=== PATIENT | female | born 1965 | race Two or more races ===

== ENCOUNTER 2025-04-29 12:31 | Inpatient (IN) | payer MEDICAID, OTHER ==
[~2025-04-29] VITALS: Ht 134.6 cm; Wt 70.5 kg
--- NOTE | 2025-04-29 12:54 | ECG ---
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
--- NOTE | 2025-04-29 12:59 | ED.PDOC ---
HPI Comments This is a 60 year old female presenting to the ED with chief complaint of neck pain and high blood pressure. Patient reports that she has been experiencing 8/10 neck pain for the past 2 days, visiting urgent care today for further evaluation. Patient relays that at the urgent care, she was found to have very high blood pressure and was advised to come into the ED for further evaluation. Patient states she did have a sharp chest pain to her left chest occur suddenly 2 days ago, but it resolved quickly. Patient's BP noted to be 181/96 in triage. Patient denies any chest pain, SOB, back pain, dizziness, headache, N/V, or abdominal pain. 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 Hx Family History Family History (Other): Arthritis Social History Smoker: Non-Smoker Alcohol: Denies ETOH Use Drugs: Denies Drug Use Lives In: Home Constitutional: denies: chills, diaphoresis, fatigue, fever, malaise, sweats, weakness, others EENTM: denies: blurred vision, double vision, ear bleeding, ear discharge, ear drainage, ear pain, ear ringing, eye pain, eye redness, hearing loss, mouth pain, mouth swelling, nasal discharge, nose bleeding, nose congestion, nose pain, photophobia, tearing, throat pain, throat swelling, voice changes, others Respiratory: denies: cough, hemoptysis, orthopnea, SOB at rest, shortness of breath, SOB with excertion, stridor, wheezing, others Cardiovascular: denies: chest pain, dizzy spells, diaphoresis, Dyspnea on exertion, edema, irregular heart beat, left arm pain, lightheadedness, palpitations, PND, syncope, others Gastrointestinal: denies: abdomen distended, abdominal pain, blood streaked bowels, constipated, diarrhea, dysphagia, difficulty swallowing, hematemesis, melena, nausea, poor appetite, poor fluid intake, rectal bleeding, rectal pain, vomiting, others Genitourinary: denies: abnormal vagina bleeding, burning, dyspareunia, dysuria, flank pain, frequency, hematuria, incontinence, pain, , vagina discharge, urgency, others Neurological: denies: dizziness, fainting, headache, left sided numbness, left sided weakness, numbness, paresthesia, pre-existing deficit, right sided numbness, right sided weakness, seizure, speech problems, tingling, tremors, weakness, others Musculoskeletal: reports: neck pain; denies: back pain, gout, joint pain, joint swelling, muscle pain, muscle stiffness, others Integumetry: denies: bruises, change in color, change in hair/nails, dryness, laceration, lesions, lumps, rash, wounds, others Allergic/Immunocompromised: denies: Difficulty Healing, Frequent Infections, Hives, Itching, others Hematologic/Lymphatic: denies: anemia, blood clots, easy bleeding, easy br uising, swollen glands, others Endocrine: denies: excessive hunger, excessive sweating, excessive thirst, excessive urination, flushing, intolerance to cold, intolerance to heat, unexplained weight gain, unexplained weight loss, others Psychiatric: denies: anxiety, bipolar disorder, depression, hopeless, panic disorder, schizophrenia, sleepless, suicidal, others All Other Systems: Reviewed and Negative Physical Exam General Appearance: Moderate Distress HEENT: Normal ENT Inspection, Pharynx Normal, TMs Normal Neck: Full Range of Motion, Non-Tender, Normal, Normal Inspection Respiratory: Chest Non-Tender, Lungs Clear, No Accessory Muscle Use, No Respiratory Distress, Normal Breath Sounds Cardiovascular: No Edema, No JVD, No Murmur, No Gallop, Normal Peripheral Pulses, Regular Rate/Rhythm Breast Exam: Deferred Gastrointestinal: No Organomegaly, Non Tender, No Pulsatile Mass, Normal Bowel Sounds, Soft Genitalia: Deferred Pelvic: Deferred Rectal: Deferred Extremities: No calf tenderness, Normal capillary refill, Normal inspection, Normal range of motion, Non-tender, No pedal edema Musculoskeletal : Apperance: Normal 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 Was a procedure done?: No CP Differential Dx Differential Diagnosis: Angina, [place], Pulmonary Embolus Differential Diagnosis: CHF Differential Diagnosis: Pericarditis X-Ray, Labs, Meds, VS Vital Signs Date Time Temp Pulse Resp B/P (MAP) Pulse Ox O2 Delivery O2 Flow Rate FiO2 04/29/25 15:30 130/78 04/29/25 15:12 132/96 04/29/25 14:55 175/98 04/29/25 14:05 70 14 203/102 (135) 98 04/29/25 14:03 203/102 04/29/25 13:18 97.8 73 14 213/102 (139) 99 97.8 04/29/25 13:14 213/102 04/29/25 13:10 73 14 99 Room Air* 0 21 04/29/25 12:59 85 04/29/25 12:53 98.3 52 18 181/96 (124) 98 98.3 04/29/25 12:52 85 Lab Test 04/29/25 15:45 04/29/25 14:48 04/29/25 13:01 Range/Units Troponin I High Sensitivity Pending 4 4 </=34 ng/L White Blood Count 9.0 4.4-10.8 10^3/uL Red Blood Count 5.07 4.0-5.20 10^6/uL Hemoglobin 15.3 12.2-16.2 g/dL Hematocrit 45.9 36.0-46.0 % Mean Corpuscular Volume 90.5 80.0-100.0 fL Mean Corpuscular Hemoglobin 30.2 28.0-32.0 pg Mean Corpuscular Hemoglobin Concent 33.4 32.0-36.0 g/dL Red Cell Distribution Width 14.2 11.8-14.3 % Platelet Count 242 140-450 10^3/uL Mean Platelet Volume 9.5 6.9-10.8 fL Neutrophils (%) (Auto) 57.7 37.0-80.0 % Lymphocytes (%) (Auto) 29.5 10.0-50.0 % Monocytes (%) (Auto) 11.0 0.0-12.0 % Eosinophils (%) (Auto) 0.7 0.0-7.0 % Basophils (%) (Auto) 1.1 0.0-2.0 % Neutrophils # (Auto) 5.2 1.6-8.6 10 ^3/uL Lymphocytes # (Auto) 2.6 0.4-5.4 10 ^3/uL Monocytes # (Auto) 1.0 0-1.3 10 ^3/uL Eosinophils # (Auto) 0.1 0-0.8 10 ^3/uL Basophils # (Auto) 0.1 0-0.2 10 ^3/uL Nucleated Red Blood Cells 0.5 % Sodium Level 144 136-145 mmol/L Potassium Level 3.6 3.5-5.1 mmol/L Chloride Level 109 H 98-107 mmol/L Carbon Dioxide Level 26 20-31 mmol/L Anion Gap 9 5-15 Blood Urea Nitrogen 15 9-23 mg/dL Creatinine 0.70 0.550-1.02 mg/dL Glomerular Filtration Rate Calc 99 >90 mL/min BUN/Creatinine Ratio 21.4 H 10.0-20.0 Serum Glucose 91 74-106 mg/dL Calcium Level 10.2 8.7-10.4 mg/dL Current Medications Medications (Trade) Dose Ordered Sig/[place] Route Start Time Stop Time Status Last Admin Clonidine HCl (Catapres Tablet) 0.1 mg ONCE ONCE PO 04/29/25 13:00 04/29/25 13:01 DC 04/29/25 13:14 Acetaminophen/ Hydrocodone Bitart ([place] 5/325MG Tab) 1 tab ONCE ONCE PO 04/29/25 13:00 04/29/25 13:01 DC 04/29/25 13:16 Nicardipine/ Sodium Chloride 200 ml @ 50 mls/hr Q4H IV 04/29/25 14:45 04/29/25 14:55 The patient's CBC is within normal limits. The chemistry panel is within normal limits. The patient was given [place] here in the emergency department's for the neck pain. The patient was given clonidine 0.1 mg for the elevated blood pressure. The patient was then started on a nicardipine drip. At this time the patient's troponin levels were done and x2 is negative The patient is being admitted with a diagnosis of hypertensive crisis The patient will be continued on the nicardipine drip Images Reviewed?: Images reviewed and evaluated by me Time of 1ST Reevaluation: 16:02 Reevaluation 1ST: Unchanged Patient Education/Counseling: Diagnosis, Treatment, Prognosis Family Education/Counseling: No Family Present Additional Information Reviewed patient's previous visit(s): None The following tests were ordered, and results were reviewed by me: EKG Additional information was gathered from interviewing the following independent historian: NONE I reviewed and agreed with the following test results read by other provider: NONE I discussed treatments and results with medical personnel and: Patient Comprehensive systems review obtained and negative except for what is stated in the HPI. Departure 1 Departure Time of Disposition: 16:01 Impression: Primary Impression: Hypertensive crisis Additional Impression: Neck pain Disposition: 09 ADMITTED INPATIENT Admit to: Tele Condition: Fair Critical Care Note Critical Care Time?: Yes (45 min-critical care time only) Stability Stability form required: Yes Unstable for transfer: ICU, CCU, PCU, KEVIN (Intensive VS monitoring), ED Physician Assesment (Clinical assesment) Heart Score Heart Score: Heart Score Response (Comments) Value History Moderate Suspicious 1 EKG Normal 0 Age 45-64 1 Risk Factors 1 or 2 risk factors 1 Troponin Normal limit 0 Total 3 I personally scribed for MARYANN GARRISON MD ([email or web address]) on 04/29/25 at 12:59. Electronically submitted by Dakota Loyd ([email or web address]). MARYANN GARRISON MD Apr 29, 2025 12:59
[2025-04-29 13:10] VITALS: PULSE 73; RESP 14; O2SAT 99
[2025-04-29] MEDS: cloNIDine HCL 0.1 MG TAB PO ONE (13:14)
[2025-04-29 13:15] LABS: Basophils # (auto) 0.1 10 ^3/uL (0-0.2); Basophils % (auto) 1.1 % (0.0-2.0); Eosinophils # (auto) 0.1 10 ^3/uL (0-0.8); Eosinophils % (auto) 0.7 % (0.0-7.0); Hematocrit 45.9 % (36.0-46.0); Hemoglobin 15.3 g/dL (12.2-16.2); Lymphocytes # (auto) 2.6 10 ^3/uL (0.4-5.4); Lymphocytes % (auto) 29.5 % (10.0-50.0); Mean Corpuscular Hemoglobin 30.2 pg (28.0-32.0); Mean Corpuscular Hgb Conc. 33.4 g/dL (32.0-36.0); Mean Corpuscular Volume 90.5 fL (80.0-100.0); Neutrophils # (auto) 5.2 10 ^3/uL (1.6-8.6); Neutrophils % (auto) 57.7 % (37.0-80.0); Nucleated Red Blood Cells % 0.5 %; Platelet Count (auto) 242 10^3/uL (140-450); Red Blood Cells 5.07 10^6/uL (4.0-5.20); Red Cell Distribution Width 14.2 % (11.8-14.3)
[2025-04-29] MEDS: HYDROcodone-ACET 5/325MG TAB PO ONE (13:16)
[2025-04-29 13:25] LABS: Potassium 3.6 mmol/L (3.5-5.1); Sodium 144 mmol/L (136-145)
[2025-04-29 13:26] LABS: Anion Gap 9 (5-15); Calcium 10.2 mg/dL (8.7-10.4); Carbon Dioxide 26 mmol/L (20-31)
[2025-04-29 13:31] LABS: BUN/Creatinine Ratio 21.4 (10.0-20.0); Blood Urea Nitrogen 15 mg/dL (9-23); Chloride 109 mmol/L (98-107); Glucose 91 mg/dL (74-106)
[2025-04-29] MEDS: NICARDIPINE HCL IN SODIUM CHLO 200 ML IV SCH (14:55)
[2025-04-29 16:41] VITALS: PULSE 80; RESP 17; O2SAT 97
[2025-04-29 19:57] VITALS: PULSE 77; RESP 18; O2SAT 96
[2025-04-29] MEDS: hydrALAZINE HCL 20 MG/ML VL IV ONE (21:32)
[2025-04-29] MEDS: LISINOPRIL 5 MG TAB PO SCH (23:45)
--- NOTE | 2025-04-29 23:49 | DVHHPRES ---
History of Present Illness Resident Creating Document: VANDANA RAMÍREZ RESIDENT History of Present Illness This is a 60-year-old female with past medical history of hypertension, dyslipidemia, unspecified irregular heart rate and arthritis, who presented to the ED referred by her PCP from [facility] due to elevated blood pressure and irregular heart rate. Patient states that she was feeling a severe headache that was worse in the occipital region but denies any chest pain or shortness of breath at that time. Upon admission, the patient had a blood pressure of 213/102 mmHg. Initial CBC and BNP were grossly unremarkable and troponins came back negative. EKG showed sinus rhythm with ventricular trigeminy and nonspecific ST-depression in leads I and AVL. Patient initially received clonidine and afterwards was placed on nicardipine drip which was further discontinued. Patient will be admitted for hypertensive urgency for further assessment management and dose readjustment. Past medical history: Hypertension, dyslipidemia, unspecified irregular heart rate. Home medications: Patient states that takes ardoson for arthritis. Denies been in any htn medication or statin. Surgical history: Denies Social history: Denies alcohol drug and smoking and lives with her family Cardiovascular: HTN, hyperipidemia Musculoskeletal: Chronic low back pain, Osteoarthritis Past Surgical History: None Family History: None Smoke: No ALCOHOL: none Drugs: None Lives: with Family Domestic Violence: Neg Review of Systems Constitutional: No: Fever, Chills, Sweats, Weakness, Malaise, Other Eyes: No: Pain, Vision change, Conjunctivae inflammation, Eyelid inflammation, Other, Redness ENT: Other (Headache); No: Ear pain, Ear discharge, Nose pain, Nose discharge, Nose congestion, Mouth pain, Mouth swelling, Throat pain, Throat swelling Respiratory: No: Cough, Dry, Shortness of breath, SOB with excertion, Wheezing, Hemoptysis, Pleuritic Pain, Sputum, Wheezing, Other Cardiovascular: No: Chest Pain, Palpitations, Orthopnea, Paroxysmal Noc. Dyspnea, Edema, Lt Headedness, Other Gastrointestinal: No: Nausea, Vomiting, Abdominal Pain, Diarrhea, Constipation, Melena, Hematochezia, Other Genitourinary: No Dysuria, No Frequency, No Incontinence, No Hematuria, No Retention, No Other Musculoskeletal: No: other, neck pain, shoulder pain, arm pain, back pain, hand pain, leg pain, foot pain Skin: No: Rash, Lesions, Jaundice, Bruising, Other Neurological: No: Weakness, Numbness, Incoordination, Change in speech, Confusion, Seizures, Other Allergies: Coded Allergies: NO KNOWN ALLERGIES (Unverified , 04/29/25) Medications Current Medications Medications Dose Ordered Sig/[place] Route Start Time Stop Time Status Last Admin Dose Admin Nicardipine/ Sodium Chloride 200 ml @ 50 mls/hr Q4H IV 04/29/25 14:45 04/29/25 14:55 50 MLS/HR Acetaminophen 650 mg Q6HP PRN PO 04/29/25 23:45 Lisinopril 10 mg DAILY PO 04/29/25 23:45 UNV Exam Vital Signs Vital Signs Date Time Temp Pulse Resp B/P (MAP) Pulse Ox O2 Delivery O2 Flow Rate FiO2 04/29/25 21:32 167/84 04/29/25 19:57 77 18 96 Room Air* 0 21 04/29/25 19:57 98.1 98.1 General Appearance: Alert, Oriented X3, Cooperative, No acute distress HEENT: Atraumatic, PERRLA, EOMI, Mucous membr. moist/pink Respiratory: Clear to auscultation, Normal air movement Cardiovascular: Normal S1, Normal S2, No murmurs, Other (Irregular heart rate EKG showed sinus rhythm with ventricular trigeminy) Abdominal: Normal bowel sounds, Soft, No tenderness, No hepatospenomegaly Extremities: No clubbing, No cyanosis, No edema, Normal pulses, No tenderness/swelling Skin: No rashes, No breakdown, No significant lesion Neuro: Normal gait, Normal speech, Strength at 5/5 X4 ext, Normal tone, Sensation intact, Cranial nerves 3-12 NL, Reflexes 2+ Psych/Mental Status: Mental status NL, Mood NL Labs/Xrays Labs Test 04/29/25 15:45 04/29/25 13:01 Range/Units Troponin I High Sensitivity 3 L </=34 ng/L White Blood Count 9.0 4.4-10.8 10^3/uL Red Blood Count 5.07 4.0-5.20 10^6/uL Hemoglobin 15.3 12.2-16.2 g/dL Hematocrit 45.9 36.0-46.0 % Mean Corpuscular Volume 90.5 80.0-100.0 fL Mean Corpuscular Hemoglobin 30.2 28.0-32.0 pg Mean Corpuscular Hemoglobin Concent 33.4 32.0-36.0 g/dL Red Cell Distribution Width 14.2 11.8-14.3 % Platelet Count 242 140-450 10^3/uL Mean Platelet Volume 9.5 6.9-10.8 fL Neutrophils (%) (Auto) 57.7 37.0-80.0 % Lymphocytes (%) (Auto) 29.5 10.0-50.0 % Monocytes (%) (Auto) 11.0 0.0-12.0 % Eosinophils (%) (Auto) 0.7 0.0-7.0 % Basophils (%) (Auto) 1.1 0.0-2.0 % Neutrophils # (Auto) 5.2 1.6-8.6 10 ^3/uL Lymphocytes # (Auto) 2.6 0.4-5.4 10 ^3/uL Monocytes # (Auto) 1.0 0-1.3 10 ^3/uL Eosinophils # (Auto) 0.1 0-0.8 10 ^3/uL Basophils # (Auto) 0.1 0-0.2 10 ^3/uL Nucleated Red Blood Cells 0.5 % Sodium Level 144 136-145 mmol/L Potassium Level 3.6 3.5-5.1 mmol/L Chloride Level 109 H 98-107 mmol/L Carbon Dioxide Level 26 20-31 mmol/L Anion Gap 9 5-15 Blood Urea Nitrogen 15 9-23 mg/dL Creatinine 0.70 0.550-1.02 mg/dL Glomerular Filtration Rate Calc 99 >90 mL/min BUN/Creatinine Ratio 21.4 H 10.0-20.0 Serum Glucose 91 74-106 mg/dL Calcium Level 10.2 8.7-10.4 mg/dL Assessment/Plan Assessment/Plan Assessment/plan Hypertensive urgency Dyslipidemia Sinus rhythm with ventricular trigeminy Chronic back pain and arthritis Plan -initial blood pressure on admission was 213/102 mmHg -Patient was started on nicardipine drip, which was discontinued afterwards -start lisinopril 10 mg daily -Low Na diet -EKG showed sinus rhythm with ventricular trigeminy and nonspecific ST depression in leads I and AVL, troponins came back negative. -monitor blood pressure closely -ordered lipid panel, hemoglobin A1c, TSH and free T4 Goals of care discussion with the patient and at bedside for >35min, FULL CODE Plan discussed with Dr. Obrien Plan discussed with: Patient My Orders Orders - VANDANA RAMÍREZ Procedure Category Date Status Time Admit ADMIT 04/29/25 Transmitted 23:32 Code Status CODE 04/29/25 Transmitted 23:32 Vital Signs JORGE 04/29/25 In Process 23:32 Review Orders With JORGE 04/29/25 In Process Adm.Md 23:32 Regular Diet DIET 04/30/25 Transmitted Breakfast Acetaminophen Tablet PHA 04/29/25 In Process (Tylenol Tablet) 23:45 Notify Md Of Changes JORGE 04/29/25 In Process From Base 23:32 Advance Directive JORGE 04/29/25 In Process 23:32 Basic Metabolic Panel LAB 04/30/25 Verified 04:00 Urinalysis LAB 04/29/25 Logged 23:32 Complete Blood Count LAB 04/30/25 Verified 04:00 Lipid Panel LAB 04/29/25 Logged 23:32 Patient Condition ORDERS 04/29/25 Transmitted 23:32 Allergies JORGE 04/29/25 In Process 23:32 Drug Screen LAB 04/29/25 Logged 23:32 Hemoglobin A1c LAB 04/29/25 Logged 23:32 Lisinopril Tablet PHA 04/29/25 Logged (Zestril Tablet) 23:45 Chest Xray 1 View XY 04/29/25 Verified 23:36 Date of Service: Apr 29, 2025 Billing Provider: NOAH OBRIEN MD Common Visit Codes: 74066-GKGOTLE INP/OBS CARE (HIGH) Secondary Visit Codes: 76655-IJORSEMA CARE PLAN 30 MINUTES VANDANA RAMÍREZ RESIDENT Apr 29, 2025 23:49
--- NOTE | 2025-04-29 23:59 | DVH ---
CHEST RADIOGRAPH Indication: EVAL LUNG PARENCHYMA Technique: Single frontal view of the chest was obtained Comparison: None FINDINGS: Lines and Tubes: None Lungs: Clear Pleura: No effusion. No pneumothorax. Cardiomediastinal contours: Unremarkable Bones: Unremarkable IMPRESSION: Clear lungs.
[2025-04-30] VITALS (10 sets, daily range): BP systolic 91–175; BP diastolic 55–94; PULSE 53–104; RESP 16–18; TEMP 97.7–98.6; O2SAT 95–98
[2025-04-30 01:36] LABS: HDL Cholesterol 59 mg/dL (40-59)
[2025-04-30 01:52] LABS: Cholesterol 291 mg/dL (< 200); Triglycerides 424 mg/dL (< 150)
[2025-04-30 05:30] LABS: Basophils # (auto) 0.1 10 ^3/uL (0-0.2); Basophils % (auto) 1.2 % (0.0-2.0); Eosinophils # (auto) 0.1 10 ^3/uL (0-0.8); Eosinophils % (auto) 1.2 % (0.0-7.0); Hematocrit 41.2 % (36.0-46.0); Hemoglobin 13.8 g/dL (12.2-16.2); Lymphocytes # (auto) 1.8 10 ^3/uL (0.4-5.4); Lymphocytes % (auto) 28.7 % (10.0-50.0); Mean Corpuscular Hemoglobin 30.3 pg (28.0-32.0); Mean Corpuscular Hgb Conc. 33.5 g/dL (32.0-36.0); Mean Corpuscular Volume 90.6 fL (80.0-100.0); Monocytes # (auto) 0.7 10 ^3/uL (0-1.3); Monocytes % (auto) 11.3 % (0.0-12.0); Neutrophils # (auto) 3.5 10 ^3/uL (1.6-8.6); Neutrophils % (auto) 57.6 % (37.0-80.0); Nucleated Red Blood Cells % 0.2 %; Platelet Count (auto) 188 10^3/uL (140-450); Red Blood Cells 4.55 10^6/uL (4.0-5.20); Red Cell Distribution Width 14.4 % (11.8-14.3); White Blood Cell 6.1 10^3/uL (4.4-10.8)
[2025-04-30 06:02] LABS: Sodium 140 mmol/L (136-145)
[2025-04-30 06:03] LABS: Anion Gap 9 (5-15); Calcium 10.1 mg/dL (8.7-10.4); Carbon Dioxide 22 mmol/L (20-31)
[2025-04-30 06:05] LABS: Chloride 109 mmol/L (98-107); Potassium 3.4 mmol/L (3.5-5.1)
[2025-04-30 06:08] LABS: BUN/Creatinine Ratio 20.3 (10.0-20.0); Blood Urea Nitrogen 13 mg/dL (9-23); Glucose 89 mg/dL (74-106)
[2025-04-30] MEDS: LABETALOL HCL 20 MG/4 ML VL IV ONE (11:55)
[2025-04-30] MEDS: LISINOPRIL 5 MG TAB PO ONE (11:55)
[2025-04-30] MEDS: CHLORTHALIDONE 25 MG TAB PO ONE (13:38)
[2025-04-30] MEDS ORDERED: hydrALAZINE HCL 20 MG/ML VL IV PRN (15:15)
[2025-04-30 15:46] LABS: Phosphorus 3.6 mg/dL (2.4-5.1)
[2025-04-30 15:58] LABS: Uric Acid 6.3 mg/dL (3.1-7.8)
[2025-04-30 16:00] LABS: Magnesium 2.3 mg/dL (1.6-2.6)
[2025-04-30] MEDS: ACETAMINOPHEN 325 MG TAB PO PRN (16:07)
[2025-04-30] MEDS: POTASSIUM EFFERVESENT TAB 25 MEQ PO ONE (16:07)
--- NOTE | 2025-04-30 19:17 | DVHPNRES ---
Progress Note Date Seen: Apr 30, 2025 Resident Creating Document: GASTON LANDIS RESIDENT Medical Necessity Reason Pt with a Central, PICC or Fol: No Subjective Review of Systems This is a 60-year-old female with past medical history of hypertension, dyslipidemia, unspecified irregular heart rate and arthritis, who presented to the ED referred by her PCP from [facility] due to elevated blood pressure and irregular heart rate. Patient states that she was feeling a severe headache that was worse in the occipital region but denies any chest pain or shortness of breath at that time. Upon admission, the patient had a blood pressure of 213/102 mmHg. Initial CBC and BNP were grossly unremarkable and troponins came back negative. EKG showed sinus rhythm with ventricular trigeminy and nonspecific ST-depression in leads I and AVL. Patient initially received clonidine and afterwards was placed on nicardipine drip which was further discontinued. Patient will be admitted for hypertensive urgency for further assessment management and dose readjustment. Past medical history: Hypertension, dyslipidemia, unspecified irregular heart rate. Home medications: Patient states that takes ardoson for arthritis. Denies been in any htn medication or statin. Surgical history: Denies Social history: Denies alcohol drug and smoking and lives with her family.. Patient seen and examined at the bedside. Nicardipine discontinued, blood pressure trending up. Increase lisinopril 20 mg, started chlorthalidone 25 mg daily, ordered metanephrines and renin/aldosterone levels. Objective vital signs Vital Sign Date Time Temp Pulse Resp B/P (MAP) Pulse Ox O2 Delivery O2 Flow Rate FiO2 04/30/25 16:51 97.7 81 16 139/89 (106) 98 97.7 04/30/25 11:00 Room Air* 0 21 medications Current Medications Medications Dose Ordered Sig/[place] Route Start Time Stop Time Status Last Admin Dose Admin Acetaminophen 650 mg Q6HP PRN PO 04/29/25 23:45 04/30/25 16:07 650 MG Lisinopril 20 mg DAILY PO 05/01/25 10:00 Chlorthalidone 25 mg DAILY@BREAKFAST PO 05/01/25 08:00 Hydralazine HCl 10 mg Q6HP PRN IV 04/30/25 15:15 Examination General Appearance: Alert, Oriented X3, Cooperative, No acute distress HEENT: Atraumatic, PERRLA, EOMI, Mucous membr. moist/pink Respiratory: Clear to auscultation, Normal air movement Cardiovascular: Normal S1, Normal S2, No murmurs, Other (Irregular heart rate EKG showed sinus rhythm with ventricular trigeminy) Abdominal: Normal bowel sounds, Soft, No tenderness, No hepatospenomegaly Extremities: No clubbing, No cyanosis, No edema, Normal pulses, No tenderness/swelling Skin: No rashes, No breakdown, No significant lesion Neuro: Normal gait, Normal speech, Strength at 5/5 X4 ext, Normal tone, Sensation intact, Cranial nerves 3-12 NL, Reflexes 2+ Psych/Mental Status: Mental status NL, Mood NL laboratory and microbiology Laboratory Tests 04/30/25 05:12 Test 04/30/25 05:12 Range/Units Serum Glucose 89 74-106 mg/dL Labs and/or images reviewed: Labs reviewed by me, Image(s) reviewed by me Problem List/Assessment/Plan Problem List/Assessment/Plan Hypertensive urgency Dyslipidemia Sinus rhythm with ventricular trigeminy Chronic back pain and arthritis Plan -initial blood pressure on admission was 213/102 mmHg -Patient was started on nicardipine drip, which was discontinued afterwards -started lisinopril 20 mg daily, chlorthalidone 25 mg daily -Low Na diet -EKG showed sinus rhythm with ventricular trigeminy and nonspecific ST depression in leads I and AVL, troponins came back negative. -monitor blood pressure closely -atorvastatin 40 mg HS daily -follow up with metanephrines and renin/aldosterone level Lovenox 40 mg sc daily Cardiac diet Plan discussed with patient in which all questions have been answered Goals of care discussed with patient for more than 28 minutes, full code status Case discussed with Dr. Hebert Plan discussed with: Patient My Orders My Orders Orders - GASTON LANDIS Procedure Category Date Status Time Lisinopril Tablet PHA 05/01/25 In Process (Zestril Tablet) 10:00 Chlorthalidone PHA 05/01/25 In Process (Chlorthalidone) 08:00 Electrocardigram EKG 04/30/25 Logged 12:37 Hydralazine Injection PHA 04/30/25 In Process (Apresoline Inject 15:15 Renin Activity And LAB 04/30/25 In Process Aldosterone 15:14 Metanephrines Frac LAB 04/30/25 In Process Free Plasma 15:14 GASTON LANDIS RESIDENT Apr 30, 2025 19:17
[2025-04-30] MEDS: ATORVASTATIN 20 MG TAB PO SCH (21:55)
[2025-05-01] VITALS: BP 106/70; PULSE 85; RESP 18; TEMP 97.7; O2SAT 98
[2025-05-01 05:00] VITALS: BP_SYST 79; PULSE 82; RESP 18; TEMP 97.7; O2SAT 98
[2025-05-01 06:29] LABS: INR 1.01 (0.9-1.15); Partial Thromboplastin Time 31.6 SEC (24.5-34.5); Prothrombin Time 10.7 sec (9.3-11.8)
[2025-05-01 06:37] LABS: Alanine Aminotransferase 15 U/L (7-40); Albumin 4.2 g/dL (3.2-4.8); Alkaline Phosphatase 67 U/L (46-116); Anion Gap 10 (5-15); Aspartate Aminotransferase 13 U/L (13-40); BUN/Creatinine Ratio 27.5 (10.0-20.0); Bilirubin, Direct 0.2 mg/dL (<0.3); Bilirubin, Total 0.8 mg/dL (0.2-1.0); Blood Urea Nitrogen 22 mg/dL (9-23); Calcium 10.4 mg/dL (8.7-10.4); Carbon Dioxide 23 mmol/L (20-31); Chloride 106 mmol/L (98-107); Glucose 105 mg/dL (74-106); Magnesium 2.2 mg/dL (1.6-2.6); Potassium 3.9 mmol/L (3.5-5.1); Sodium 139 mmol/L (136-145); Total Protein 7.3 g/dL (5.7-8.2)
[2025-05-01 08:00] VITALS: PULSE 91; PULSE 97; RESP 18; O2SAT 98
[2025-05-01 09:00] VITALS: BP 135/82; PULSE 91; RESP 16; TEMP 97.5; O2SAT 96
[2025-05-01] MEDS: CHLORTHALIDONE 25 MG TAB PO SCH (10:16)
[2025-05-01] MEDS: ENOXAPARIN SOD 40 MG/0.4 ML SYRINGE SC SCH (10:17)
[2025-05-01] MEDS: LISINOPRIL 5 MG TAB PO SCH (10:17)
[2025-05-01 12:50] VITALS: BP 144/99; PULSE 78; RESP 18; TEMP 97.5; O2SAT 96
[2025-05-01] MEDS ORDERED: LISI-275 PO (13:57)
[2025-05-01] MEDS ORDERED: CHLO25TA2 PO (13:57)
[2025-05-01] MEDS ORDERED: METO25TA93 PO (13:57)
[2025-05-01] MEDS ORDERED: ATOR20TA50 PO (13:57)
--- NOTE | 2025-05-01 14:01 | DVHDSRES ---
Discharge Summary Date of Admission Resident Creating Document: AUDIE FLOWERS RESIDENT Apr 29, 2025 at 23:32 Date of Discharge: May 01, 2025 Admitting Diagnosis Hypertensive urgency Labs/Diagnostic Data: Laboratory Results Test 05/01/25 05:48 04/30/25 16:54 04/30/25 05:12 04/29/25 15:45 Prothrombin Time 10.7 sec (9.3-11.8) Prothrombin Time INR 1.01 (0.9-1.15) Activated Partial Thromboplast Time 31.6 SEC (24.5-34.5) Sodium Level 139 mmol/L (136-145) Potassium Level 3.9 mmol/L (3.5-5.1) Chloride Level 106 mmol/L (98-107) Carbon Dioxide Level 23 mmol/L (20-31) Anion Gap 10 (5-15) Blood Urea Nitrogen 22 mg/dL (9-23) Creatinine 0.80 mg/dL (0.550-1.02) Glomerular Filtration Rate Calc 84 mL/min (>90) BUN/Creatinine Ratio 27.5 (10.0-20.0) Serum Glucose 105 mg/dL (74-106) Calcium Level 10.4 mg/dL (8.7-10.4) Magnesium Level 2.2 mg/dL (1.6-2.6) Total Bilirubin 0.8 mg/dL (0.2-1.0) Direct Bilirubin 0.2 mg/dL (<0.3) Aspartate Amino Transferase (AST) 13 U/L (13-40) Alanine Aminotransferase (ALT) 15 U/L (7-40) Alkaline Phosphatase 67 U/L (46-116) Total Protein 7.3 g/dL (5.7-8.2) Albumin 4.2 g/dL (3.2-4.8) Vitamin D 25-Hydroxy 34.7 ng/mL (30.0-100) White Blood Count 6.1 10^3/uL (4.4-10.8) Red Blood Count 4.55 10^6/uL (4.0-5.20) Hemoglobin 13.8 g/dL (12.2-16.2) Hematocrit 41.2 % (36.0-46.0) Mean Corpuscular Volume 90.6 fL (80.0-100.0) Mean Corpuscular Hemoglobin 30.3 pg (28.0-32.0) Mean Corpuscular Hemoglobin Concent 33.5 g/dL (32.0-36.0) Red Cell Distribution Width 14.4 % (11.8-14.3) Platelet Count 188 10^3/uL (140-450) Mean Platelet Volume 9.3 fL (6.9-10.8) Neutrophils (%) (Auto) 57.6 % (37.0-80.0) Lymphocytes (%) (Auto) 28.7 % (10.0-50.0) Monocytes (%) (Auto) 11.3 % (0.0-12.0) Eosinophils (%) (Auto) 1.2 % (0.0-7.0) Basophils (%) (Auto) 1.2 % (0.0-2.0) Neutrophils # (Auto) 3.5 10 ^3/uL (1.6-8.6) Lymphocytes # (Auto) 1.8 10 ^3/uL (0.4-5.4) Monocytes # (Auto) 0.7 10 ^3/uL (0-1.3) Eosinophils # (Auto) 0.1 10 ^3/uL (0-0.8) Basophils # (Auto) 0.1 10 ^3/uL (0-0.2) Nucleated Red Blood Cells 0.2 % Uric Acid 6.3 mg/dL (3.1-7.8) Phosphorus Level 3.6 mg/dL (2.4-5.1) Troponin I High Sensitivity 3 ng/L (</=34) Test 04/29/25 13:01 Hemoglobin A1c 5.5 % A1C (<5.7) Triglycerides Level 424 mg/dL (< 150) Cholesterol Level 291 mg/dL (< 200) LDL Cholesterol mg/dL (< 100) HDL Cholesterol 59 mg/dL (40-59) Thyroid Stimulating Hormone (TSH) 4.24 uIU/mL (0.55-4.78) Free Thyroxine (T4) Calculated 1.29 ng/dL (0.89-1.76) Other Laboratory Tests 05/01/25 05:48 04/30/25 05:12 Brief Hx & Hospital Course: This is a 60-year-old female with past medical history of hypertension, dyslipidemia, unspecified irregular heart rate and arthritis, who presented to the ED referred by her PCP from clinical point [facility] due to elevated blood pressure and irregular heart rate. Patient states that she was feeling a severe headache that was worse in the occipital region but denies any chest pain or shortness of breath at that time. Upon admission, the patient had a blood pressure of 213/102 mmHg. Initial CBC and BNP were grossly unremarkable and troponins came back negative. EKG showed sinus rhythm with ventricular trigeminy and nonspecific ST-depression in leads I and AVL. Patient initially received clonidine and afterwards was placed on nicardipine drip which was further discontinued. Patient will be admitted for hypertensive urgency for further assessment management and dose readjustment. initial blood pressure on admission was 213/102 mmHg, Patient was started on nicardipine drip, which was discontinued afterwards, started lisinopril 20 mg daily, chlorthalidone 25 mg daily, EKG showed sinus rhythm with ventricular trigeminy and nonspecific ST depression in leads I and AVL, troponins came back negative. Two the patient has no complaint denies any headache blood pressure was within normal limit from yesterday. Patient is hemodynamically stable and going to be discharged home with lisinopril 20 mg, Ahmet slid on 25 mg daily. Advised patient to follow up with PCP in 1-2 weeks. Condition at Discharge: Stable Final Diagnosis/Problems List Hypertensive urgency Dyslipidemia Sinus rhythm with ventricular trigeminy Chronic back pain and arthritis Discharge Disposition: Home SNF Discharge Will this Physician continue t: No Discharge Instruct/Medications Diet: Cardiac 2g Na,low cholest Activity: No Restrictions, As Tolerated Follow Up/Referral: Follow up with PCP in 1-2 weeks Medications: Lisinopril 20 mg daily Chlorthalidone 25 mg daily Atorvastatin 40 mg daily Metoprolol 25 mg daily Discharge Statement: "Patient was advised to return to the ER or call 911 if any headaches, dizziness, shortness of breath, chest pain, abdominal pain, bleeding, fevers, or worsening of medical condition. Patient was counseled about treatment plan, medications, possible side effects, patientverbalized understanding. All questions were answered to the best of my ability. This discharge took greater then 30 minutes in planning, reviewing documentation, counseling the patient, and discussing with other team members." ASSESSMENT ASSESSMENT Assessment Hypertensive urgency Dyslipidemia Sinus rhythm with ventricular trigeminy Chronic back pain and arthritis Date of Service: May 01, 2025 Billing Provider: ANCA COX MD Common Visit Codes: 65627-FMU/OBS DISCH DAY >30min AUDIE FLOWERS RESIDENT May 01, 2025 14:01 ANCA COX MD May 01, 2025 22:24
[2025-05-01 14:12] VITALS: BP 135/82; PULSE 83; TEMP 36.4
== END 2025-05-01 15:45 | disposition home or self-care (01) | DRG 199 ==
LOC: ER 12:31 → OVERFLOW 23:32 → TELE-CENTR 04-30 15:23
PROVIDERS: ADMIT Student in an Organized Health Care Education/Training Program; ATTEND Emergency Medicine
DX: I16.0 Hypertensive urgency (principal); E78.5 Hyperlipidemia, unspecified; G89.29 Other chronic pain; I10 Essential (primary) hypertension; M54.2 Cervicalgia; R00.8 Other abnormalities of heart beat; M13.88 Other specified arthritis, other site; M54.9 Dorsalgia, unspecified; Z82.61 Family history of arthritis
CPT/HCPCS: 36415; 71045; 80048; 80061; 80076; 82088; 82306; 82607; 83036; 83735; 83835; 84100; 84244; 84439; 84443; 84484; 84550; 85025; 85610; 85730; 93005; 96374; 99291; G0378

== ENCOUNTER 2025-06-15 14:44 | Inpatient (IN) | payer MEDICAID ==
[~2025-06-15] VITALS: Ht 152.4 cm; Wt 50.4 kg
[~2025-06-15 14:44] MED LIST: ATOR20TA50 PO; CHLO25TA2 PO; LISI-275 PO; METO25TA93 PO
--- NOTE | 2025-06-15 15:09 | ED.PDOC ---
HPI Comments 60 y/o F, with PMHx of arthritis and HTN presents to the ED for CC of chest pain. Patient states, she has been experiencing substernal chest pain with an associated red splotchy rash x1day. Patient relays, to have associated symptoms of shortness of breath feeling as if she is unable to catch enough air on inspiration. Patient denies change in diet or bath products, palpitations, headache, dizziness, sneezing, or itchiness. No other associated symptoms, modifiers, recent injuries or sick contacts present at this time. Chief Complaint: Chest Pain Time Seen by MD: 15:00 Primary Care Provider: NONE Reviewed Notes: Nurses Notes, Medications, Allergies Allergies: Coded Allergies: NO KNOWN ALLERGIES (Unverified , 04/29/25) Home Meds Active Scripts Metoprolol Succinate (Metoprolol Succinate Er) 25 Mg Tab, 1 TAB PO DAILY, #30 TAB 2 Refills Prov:AUDIE FLOWERS RESIDENT 05/01/25 Lisinopril (Lisinopril) 5 Mg Tab, 20 MG PO DAILY for 30 Days, #30 TAB 2 Refills Prov:AUDIE FLOWERS RESIDENT 05/01/25 Chlorthalidone (Chlorthalidone) 25 Mg Tab, 25 MG PO DAILY@BREAKFAST for 30 Days, #30 TAB 2 Refills Prov:AUDIE FLOWERS RESIDENT 05/01/25 Atorvastatin Calcium (ATORVASTATIN CALCIUM) 20 Mg Tab, 40 MG PO HS for 30 Days, #30 TAB Prov:AUDIE FLOWERS RESIDENT 05/01/25 Information Source: Patient Mode of Arrival: Ambulatory Severity: Moderate Timing: Days Duration: Since onset Prehospital treatment: None Location: Substernal Radiation: Back Onset: At Rest PE Risk Factors: None History of: None Modifying Factors: Nothing Associated Signs and Symptoms: None Past Medical History PAST MEDICAL HISTORY: Arthritis, HTN Surgical History: 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 DIRECTOR OF BIOSTATISTICS History: Denies all ASSOCIATE DIRECTOR OF BIOSTATISTICS Hx Family History Family History (Other): Arthritis Social History Smoker: Non-Smoker Alcohol: Denies ETOH Use Drugs: Denies Drug Use Lives In: Home Constitutional: denies: chills, diaphoresis, fatigue, fever, malaise, sweats, weakness, others EENTM: denies: blurred vision, double vision, ear bleeding, ear discharge, ear drainage, ear pain, ear ringing, eye pain, eye redness, hearing loss, mouth pain, mouth swelling, nasal discharge, nose bleeding, nose congestion, nose pain, photophobia, tearing, throat pain, throat swelling, voice changes, others Respiratory: reports: shortness of breath; denies: cough, hemoptysis, orthopnea, SOB at rest, SOB with excertion, stridor, wheezing, others Cardiovascular: reports: chest pain; denies: dizzy spells, diaphoresis, Dyspnea on exertion, edema, irregular heart beat, left arm pain, lightheadedness, palpitations, PND, syncope, others Gastrointestinal: denies: abdomen distended, abdominal pain, blood streaked bowels, constipated, diarrhea, dysphagia, difficulty swallowing, hematemesis, melena, nausea, poor appetite, poor fluid intake, rectal bleeding, rectal pain, vomiting, others Genitourinary: denies: abnormal vagina bleeding, burning, dyspareunia, dysuria, flank pain, frequency, hematuria, incontinence, pain, , vagina discharge, urgency, others Neurological: denies: dizziness, fainting, headache, left sided numbness, left sided weakness, numbness, paresthesia, pre-existing deficit, right sided numbness, right sided weakness, seizure, speech problems, tingling, tremors, weakness, others Musculoskeletal: denies: back pain, gout, joint pain, joint swelling, muscle pain, muscle stiffness, neck pain, others Integumetry: denies: bruises, change in color, change in hair/nails, dryness, laceration, lesions, lumps, rash, wounds, others Allergic/Immunocompromised: denies: Difficulty Healing, Frequent Infections, Hives, Itching, others Hematologic/Lymphatic: denies: anemia, blood clots, easy bleeding, easy bruising, swollen glands, others Endocrine: denies: excessive hunger, excessive sweating, excessive thirst, excessive urination, flushing, intolerance to cold, intolerance to heat, unexplained weight gain, unexplained weight loss, others Psychiatric: denies: anxiety, bipolar disorder, depression, hopeless, panic disorder, schizophrenia, sleepless, suicidal, others All Other Systems: Reviewed and Negative Physical Exam General Appearance: Moderate Distress HEENT: Normal ENT Inspection, Pharynx Normal, TMs Normal Neck: Full Range of Motion, Non-Tender, Normal, Normal Inspection Respiratory: Chest Non-Tender, Lungs Clear, No Accessory Muscle Use, No Respiratory Distress, Normal Breath Sounds Cardiovascular: No Edema, No JVD, No Murmur, No Gallop, Normal Peripheral Pulses, Regular Rate/Rhythm Breast Exam: Deferred Gastrointestinal: No Organomegaly, Non Tender, No Pulsatile Mass, Normal Bowel Sounds, Soft Genitalia: Deferred Pelvic: Deferred Rectal: Deferred Extremities: No calf tenderness, Normal capillary refill, Normal inspection, No rmal range of motion, Non-tender, No pedal edema Musculoskeletal : Apperance: Normal Neurologic: Alert, 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 Was a procedure done?: No CP Differential Dx Differential Diagnosis: A-fib, A-Flutter, Angina, Anxiety / Panic Attack, Atrial Dysrhythmia, Electrolyte Disorder Differential Diagnosis: HTN Essential, HTN Accelerated Differential Diagnosis: Angina, Chest Wall Pain, Costochondritis X-Ray, Labs, Meds, VS Vital Signs Date Time Temp Pulse Resp B/P (MAP) Pulse Ox O2 Delivery O2 Flow Rate FiO2 06/15/25 14:55 98.6 83 18 143/107 (119) 96 98.6 Lab Test 06/15/25 15:09 Range/Units White Blood Count 10.1 4.4-10.8 10^3/uL Red Blood Count 4.75 4.0-5.20 10^6/uL Hemoglobin 14.4 12.2-16.2 g/dL Hematocrit 43.6 36.0-46.0 % Mean Corpuscular Volume 91.7 80.0-100.0 fL Mean Corpuscular Hemoglobin 30.4 28.0-32.0 pg Mean Corpuscular Hemoglobin Concent 33.1 32.0-36.0 g/dL Red Cell Distribution Width 15.1 H 11.8-14.3 % Platelet Count 247 140-450 10^3/uL Mean Platelet Volume 9.5 6.9-10.8 fL Neutrophils (%) (Auto) 58.3 37.0-80.0 % Lymphocytes (%) (Auto) 31.5 10.0-50.0 % Monocytes (%) (Auto) 8.4 0.0-12.0 % Eosinophils (%) (Auto) 0.8 0.0-7.0 % Basophils (%) (Auto) 1.0 0.0-2.0 % Neutrophils # (Auto) 5.9 1.6-8.6 10 ^3/uL Lymphocytes # (Auto) 3.2 0.4-5.4 10 ^3/uL Monocytes # (Auto) 0.8 0-1.3 10 ^3/uL Eosinophils # (Auto) 0.1 0-0.8 10 ^3/uL Basophils # (Auto) 0.1 0-0.2 10 ^3/uL Nucleated Red Blood Cells 0.1 % Troponin I High Sensitivity Pending Patient alert. Complaining of chest pain. Blood pressure fluctuating because of her possible anxiety. Vitals stable. EKG does show ventricular abnormality. WBC within normal limits. Hemoglobin within normal limits. Was given aspirin. Has risk factors for coronary artery disease. Explained to the patient. Continue monitoring. Time of 1ST Reevaluation: 15:30 Reevaluation 1ST: Unchanged Patient Education/Counseling: Diagnosis, Treatment Family Education/Counseling: No Family Present SEPSIS Sepsis Screen Physician Orders Chest Portable (06/15/25 15:10) Urinalysis (06/15/25 15:10) Troponin-I Hs (06/15/25 15:10) Troponin-I Hs (06/15/25 16:10) Troponin-I Hs (06/15/25 18:10) Vital Signs Date Time Temp Pulse Resp B/P (MAP) Pulse Ox O2 Delivery O2 Flow Rate FiO2 06/15/25 14:55 98.6 83 18 143/107 (119) 96 98.6 Laboratory Tests Test 06/15/25 15:09 White Blood Count 10.1 10^3/uL (4.4-10.8) Departure 1 Departure Time of Disposition: 15:29 Impression: Primary Impression: Chest pain of unknown etiology Additional Impression: Hypertensive urgency Disposition: ADMITTED INPATIENT Admit to: Med Surg Condition: Guarded Critical Care Note Critical Care Time?: No Stability Stability form required: No Heart Score Heart Score: Heart Score Response (Comments) Value History Slightly Suspicious 0 EKG Normal 0 Age 45-64 1 Risk Factors 1 or 2 risk factors 1 Troponin Normal limit 0 Total 2 I personally scribed for JORY CAMERON MD ([email or web address]) on 06/15/25 at 15:09. Electronically submitted by Sharon Leal ([email or web address]). I personally scribed for JORY CAMERON MD ([email or web address]) on 06/15/25 at 15:18. Electronically submitted by Sharon Leal ([email or web address]). JORY CAMERON MD Jun 15, 2025 15:09
[2025-06-15 15:25] LABS: Hematocrit 43.6 % (36.0-46.0); Hemoglobin 14.4 g/dL (12.2-16.2); Mean Corpuscular Hemoglobin 30.4 pg (28.0-32.0); Mean Corpuscular Volume 91.7 fL (80.0-100.0); Nucleated Red Blood Cells % 0.1 %
--- NOTE | 2025-06-15 15:38 | DVH ---
INDICATION: bmp TECHNIQUE: Frontal view of the chest. COMPARISON: XY CHEST XRAY 1 VIEW on DOS: 04/29/25 FINDINGS: . The heart and mediastinal contours are grossly unremarkable. There is no evidence of pleural disea se. The lungs are clear. The bony structures of the chest are intact without fracture. IMPRESSION: 1. No evidence of acute disease.
--- NOTE | 2025-06-15 16:12 | ECG ---
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
[2025-06-15 16:20] VITALS: PULSE 64
[2025-06-15] MEDS ORDERED: HYDROcodone-ACET 5/325MG TAB PO PRN (16:45)
[2025-06-15] MEDS ORDERED: ONDANSETRON HCL 4 MG/2 ML VIAL IV PRN (16:45)
[2025-06-15] MEDS: SODIUM CHLORIDE 0.9% 1,000 ML IV SCH (16:45)
[2025-06-15 17:11] LABS: Alanine Aminotransferase 16 U/L (7-40); Albumin 4.5 g/dL (3.2-4.8); Alkaline Phosphatase 65 U/L (46-116); Anion Gap 13 (5-15); BUN/Creatinine Ratio 26.2 (10.0-20.0); Blood Urea Nitrogen 17 mg/dL (9-23); Glucose 97 mg/dL (74-106); Potassium 3.7 mmol/L (3.5-5.1); Sodium 142 mmol/L (136-145); Total Protein 7.4 g/dL (5.7-8.2)
[2025-06-15 17:12] LABS: Bilirubin, Total 0.4 mg/dL (0.2-1.0)
[2025-06-15 17:13] LABS: Calcium 10.8 mg/dL (8.7-10.4); Carbon Dioxide 20 mmol/L (20-31); Chloride 109 mmol/L (98-107)
[2025-06-15] MEDS ORDERED: NITROGLYCERIN 0.4 MG SL TAB SL PRN (17:30)
[2025-06-15] MEDS ORDERED: MORPHINE SULFATE INJ 2 MG/ml SYRG IV PRN (17:30)
--- NOTE | 2025-06-15 17:32 | DVHHP2 ---
History of Present Illness Reason for Visit: Hypertensive emergency History of Present Illness The patient is a 60-year-old female with past medical history of arthritis and hypertension who presented to [facility] ED with complaint of chest pain. Patient reports she has been experiencing substernal chest pain with associated with shortness of breaths, SOB at rest, on exertion, skin rash, getting worse that prompted this visit. Patient was seen and evaluated in the ED, laboratory data shows WBC 10.1, platelets 247, sodium 142, potassium 3.7, BUN 17, creatinine 0.65, glucose 97, calcium 10.8, troponin < 3, blood pressure 219/115 trending down to 112/80, heart rate 65, temperature 97.0 F, O2 saturation 99% on oxygen. Chest x-ray showed no evidence of acute disease. Please see medication orders section in the computer. On my assessment, patient denied chest pain, no dizziness, no headache, no diaphoresis, currently on oxygen, no diaphoresis, no nausea, no vomiting, no fever, no chills. Patient was admitted for further evaluation and medical management. Past Medical History Arthritis, HTN Past Surgical History Family History Reviewed, noncontributory to the management of this case. Past Social History The patient lives at home, denies smoking, alcohol or illicit drugs abuse. Review of Systems Constitutional: No: Fever, Chills, Sweats, Weakness, Malaise, Other Eyes: No: Pain, Vision change, Conjunctivae inflammation, Eyelid inflammation, Other, Redness ENT: No: Ear pain, Ear discharge, Nose pain, Nose discharge, Nose congestion, Mouth pain, Mouth swelling, Throat pain, Throat swelling, Other Respiratory: Shortness of breath, SOB with excertion, Other (SOB at rest); No: Cough, Dry, Wheezing, Hemoptysis, Pleuritic Pain, Sputum, Wheezing Cardiovascular: Other (Hypertension); No: Chest Pain, Palpitations, Orthopnea, Paroxysmal Noc. Dyspnea, Edema, Lt Headedness Gastrointestinal: No: Nausea, Vomiting, Abdominal Pain, Diarrhea, Constipation, Melena, Hematochezia, Other Genitourinary: No Dysuria, No Frequency, No Incontinence, No Hematuria, No Retention, No Other Musculoskeletal: No: other, neck pain, shoulder pain, arm pain, back pain, hand pain, leg pain, foot pain Skin: Rash (Skin); No: Lesions, Jaundice, Bruising, Other Neurological: No: Weakness, Numbness, Incoordination, Change in speech, Confusion, Seizures, Other Allergies: Coded Allergies: NO KNOWN ALLERGIES (Unverified , 04/29/25) Medications Current Medications Medications Dose Ordered Sig/Savana Route Start Time Stop Time Status Last Admin Dose Admin Aspirin 81 mg DAILY PO 06/16/25 10:00 Atorvastatin Calcium 20 mg HS PO 06/15/25 22:00 Metoprolol Tartrate 50 mg BID PO 06/15/25 22:00 Amlodipine Besylate 5 mg DAILY PO 06/16/25 10:00 Hydralazine HCl 10 mg Q6HP PRN IV 06/15/25 16:45 Sodium Chloride 1,000 ml @ 60 mls/hr [id number] IV 06/15/25 16:45 Acetaminophen/ Hydrocodone Bitart 1 tab Q4HP PRN PO 06/15/25 16:45 Ondansetron HCl 4 mg Q4HP PRN IV 06/15/25 16:45 Docusate Sodium 100 mg BIDPRN PRN PO 06/15/25 16:45 Acetaminophen 650 mg Q6HP PRN PO 06/15/25 16:45 Exam Vital Signs Vital Signs Date Time Temp Pulse Resp B/P (MAP) Pulse Ox O2 Delivery O2 Flow Rate FiO2 06/15/25 16:23 99.0 64 15 198/101 (133) 98 99.0 06/15/25 15:57 Room Air General Appearance: Alert, Oriented X3, Cooperative, No acute distress HEENT: Atraumatic, PERRLA, EOMI, Mucous membr. moist/pink Respiratory: Normal air movement Cardiovascular: Regular rate, Normal S1, Normal S2, No murmurs Abdominal: Normal bowel sounds, Soft, No tenderness, No hepatospenomegaly, No masses Extremities: No clubbing, No cyanosis, No edema, Normal pulses, No tenderness/swelling Skin: No breakdown, No significant lesion Neuro: Normal gait, Normal speech, Strength at 5/5 X4 ext, Normal tone, Sensation intact, Cranial nerves 3-12 NL, Reflexes 2+ Psych/Mental Status: Mental status NL, Mood NL Labs/Xrays Labs Test 06/15/25 15:35 06/15/25 15:09 Range/Units Troponin I High Sensitivity < 3 L </=34 ng/L White Blood Count 10.1 4.4-10.8 10^3/uL Red Blood Count 4.75 4.0-5.20 10^6/uL Hemoglobin 14.4 12.2-16.2 g/dL Hematocrit 43.6 36.0-46.0 % Mean Corpuscular Volume 91.7 80.0-100.0 fL Mean Corpuscular Hemoglobin 30.4 28.0-32.0 pg Mean Corpuscular Hemoglobin Concent 33.1 32.0-36.0 g/dL Red Cell Distribution Width 15.1 H 11.8-14.3 % Platelet Count 247 140-450 10^3/uL Mean Platelet Volume 9.5 6.9-10.8 fL Neutrophils (%) (Auto) 58.3 37.0-80.0 % Lymphocytes (%) (Auto) 31.5 10.0-50.0 % Monocytes (%) (Auto) 8.4 0.0-12.0 % Eosinophils (%) (Auto) 0.8 0.0-7.0 % Basophils (%) (Auto) 1.0 0.0-2.0 % Neutrophils # (Auto) 5.9 1.6-8.6 10 ^3/uL Lymphocytes # (Auto) 3.2 0.4-5.4 10 ^3/uL Monocytes # (Auto) 0.8 0-1.3 10 ^3/uL Eosinophils # (Auto) 0.1 0-0.8 10 ^3/uL Basophils # (Auto) 0.1 0-0.2 10 ^3/uL Nucleated Red Blood Cells 0.1 % Sodium Level 142 136-145 mmol/L Potassium Level 3.7 3.5-5.1 mmol/L Chloride Level 109 H 98-107 mmol/L Carbon Dioxide Level 20 20-31 mmol/L Anion Gap 13 5-15 Blood Urea Nitrogen 17 9-23 mg/dL Creatinine 0.65 0.550-1.02 mg/dL Glomerular Filtration Rate Calc 101 >90 mL/min BUN/Creatinine Ratio 26.2 H 10.0-20.0 Serum Glucose 97 74-106 mg/dL Calcium Level 10.8 H 8.7-10.4 mg/dL Total Bilirubin 0.4 0.2-1.0 mg/dL Aspartate Amino Transferase (AST) 22 13-40 U/L Alanine Aminotransferase (ALT) 16 7-40 U/L Alkaline Phosphatase 65 46-116 U/L Total Protein 7.4 5.7-8.2 g/dL Albumin 4.5 3.2-4.8 g/dL PATIENT: DEBORAH COLEMAN ACCT: [id number] UNIT: [id number] : 1965 LOC: ER ROOM / BED: / AGE / SEX: 60 / F ADM STATUS: REG ER SERVICE 1510 ORDERING PHYSICIAN: JORY CAMERON MD PROCEDURE(s): CXRP - CHEST PORTABLE REASON: bmp ORDER NUMBER(s): [id number], ACCESSION NUMBER(s): [id number] INDICATION: bmp TECHNIQUE: Frontal view of the chest. COMPARISON: XY CHEST XRAY 1 VIEW on DOS: 04/29/25 FINDINGS: The heart and mediastinal contours are grossly unremarkable. There is no evidence of pleural disease. The lungs are clear. The bony structures of the chest are intact without fracture. IMPRESSION: 1. No evidence of acute disease. SEPSIS Sepsis Screen Date sepsis recognized/suspect: Jun 15, 2025 Time Sepsis recognized/suspect: 1454 Recent Procedure: No On Antibiotic Therapy: No Respiratory Rate >20: No Heart Rate >90: No Temp<36 C (96.8 F) or >38.3 C: No SBP <90 or MAP <65 mmHG: No New Acute Mental Status Change: No Is the patient on CPAP, BIPAP,: No Physician Orders Chest Portable (06/15/25 15:10) Urinalysis (06/15/25 15:10) Electrocardigram (06/15/25 16:47) Electrocardigram (06/15/25 18:47) Aspirin Tablet (06/16/25 10:00) Atorvastatin (Lipitor) (06/15/25 22:00) Metoprolol Tartrate Tablet (Lopressor Ta (06/15/25 22:00) Amlodipine Tablet (Norvasc Tablet) (06/16/25 10:00) Hydralazine Injection (Apresoline Inject (06/15/25 16:45) * Cardiology Consult (06/15/25 16:42) Allergies (06/15/25 16:42) Code Status (06/15/25 16:42) Sodium Chloride 0.9% (06/15/25 16:45) Oxygen Per Hour (06/15/25 16:42) Hydrocodone-Acet 5/325mg Tab ([place] (06/15/25 16:45) Ondansetron Hcl (Zofran) (06/15/25 16:45) Docusate Sodium Capsule (Colace Capsule) (06/15/25 16:45) Complete Blood Count (06/16/25 04:00) Comprehensive Metabolic Panel (06/16/25 04:00) Cardiac Diet-2gna,Lofat,Lochol (06/15/25 Dinner) Condition: Serious (06/15/25 16:42) Acetaminophen Tablet (Tylenol Tablet) (06/15/25 16:45) Bedrest With Bathroom Privileg (06/15/25 16:42) Sequential Compression Device (06/15/25 ) Vital Signs Date Time Temp Pulse Resp B/P (MAP) Pulse Ox O2 Delivery O2 Flow Rate FiO2 06/15/25 16:23 99.0 64 15 198/101 (133) 98 99.0 06/15/25 16:20 64 06/15/25 16:19 190/101 06/15/25 16:11 61 06/15/25 15:57 69 18 219/115 (149) 98 06/15/25 15:57 69 18 98 Room Air 06/15/25 15:02 81 06/15/25 14:55 98.6 83 18 143/107 (119) 96 98.6 Laboratory Tests Test 06/15/25 15:09 White Blood Count 10.1 10^3/uL (4.4-10.8) Medications Medications Dose Ordered Sig/Savana Route Start Time Stop Time Status Last Admin Dose Admin Aspirin 325 mg ONCE ONCE PO 06/15/25 15:15 06/15/25 15:16 DC 06/15/25 16:18 325 MG Clonidine HCl 0.2 mg ONCE ONCE PO 06/15/25 16:00 06/15/25 16:01 DC 06/15/25 16:19 0.2 MG Assessment/Plan Assessment/Plan Chest pain of unknown etiology Hypertensive urgency Plan 1. Admit to telemetry unit 2. Breathing treatment 3. Pain control management 4. Management of fluids and electrolytes 5. Consultation for hospitalist 6. Diagnostic tests chest x-ray 7. DVT prophylaxis-on aspirin 8. Repeat labs CBC, CMP in a.m. 9. Continue with current medical management 10. Treatment plan discussed with patient and RN. Patient verbalized understanding. Plan discussed with: Patient, Other (RN) My Orders Orders - DESIRAE WATSON DNP Procedure Category Date Status Time Aspirin Tablet PHA 06/16/25 In Process 10:00 Atorvastatin (Lipitor) PHA 06/15/25 In Process 22:00 Metoprolol Tartrate PHA 06/15/25 In Process Tablet (Lopressor Ta 22:00 Amlodipine Tablet PHA 06/16/25 In Process (Norvasc Tablet) 10:00 Hydralazine Injection PHA 06/15/25 In Process (Apresoline Inject 16:45 * Cardiology Consult CONS 06/15/25 Transmitted 16:42 Allergies JORGE 06/15/25 In Process 16:42 Code Status CODE 06/15/25 Transmitted 16:42 Sodium Chloride 0.9% PHA 06/15/25 In Process 16:45 Oxygen Per Hour RT 06/15/25 Transmitted 16:42 Hydrocodone-Acet PHA 06/15/25 In Process 5/325mg Tab ([place] 16:45 Ondansetron Hcl PHA 06/15/25 In Process (Zofran) 16:45 Docusate Sodium PHA 06/15/25 In Process Capsule (Colace 16:45 Complete Blood Count LAB 06/16/25 Verified 04:00 Comprehensive LAB 06/16/25 Verified Metabolic Panel 04:00 Cardiac DIET 06/15/25 Transmitted Diet-2gna,Lofat,Lochol Dinner Condition: Serious JORGE 06/15/25 In Process 16:42 Acetaminophen Tablet PHA 06/15/25 In Process (Tylenol Tablet) 16:45 Bedrest With Bathroom JORGE 06/15/25 In Process Privileg 16:42 Sequential JORGE 06/15/25 In Process Compression Device Problem List: (1) Chest pain of unknown etiology (2) Hypertensive urgency Date of Service: Jun 15, 2025 Billing Provider: DESIRAE WATSON DNP Common Visit Codes: [id number] INP/OBS CARE (HIGH) DESIRAE WATSON DNP Jun 15, 2025 17:32
[2025-06-15 18:35] LABS: Urine Protein, UAD Negative (Negative)
[2025-06-15] MEDS: METOPROLOL TARTRATE 50 MG TAB PO SCH (22:09)
[2025-06-15] MEDS: ATORVASTATIN 20 MG TAB PO SCH (22:09)
[2025-06-16] VITALS (8 sets, daily range): BP systolic 130–156; BP diastolic 76–87; PULSE 50–89; RESP 16–19; TEMP 97.4–98.6; O2SAT 97–99
[2025-06-16 03:52] LABS: Hematocrit 38.8 % (36.0-46.0); Hemoglobin 13.1 g/dL (12.2-16.2); Mean Corpuscular Hemoglobin 30.7 pg (28.0-32.0); Mean Corpuscular Volume 90.9 fL (80.0-100.0); Nucleated Red Blood Cells % 0.1 %
[2025-06-16 04:08] LABS: Alanine Aminotransferase 16 U/L (7-40); Albumin 4.0 g/dL (3.2-4.8); Alkaline Phosphatase 54 U/L (46-116); Anion Gap 10 (5-15); BUN/Creatinine Ratio 25.8 (10.0-20.0); Blood Urea Nitrogen 16 mg/dL (9-23); Calcium 9.7 mg/dL (8.7-10.4); Carbon Dioxide 24 mmol/L (20-31); Glucose 89 mg/dL (74-106); Sodium 143 mmol/L (136-145); Total Protein 6.5 g/dL (5.7-8.2)
[2025-06-16 04:09] LABS: Bilirubin, Total 0.5 mg/dL (0.2-1.0)
[2025-06-16 04:14] LABS: Chloride 109 mmol/L (98-107); Potassium 3.5 mmol/L (3.5-5.1)
[2025-06-16 08:54] LABS: Amphetamine Screen, Urine Neg (NEGATIVE); Barbiturate Scree,Urine Neg (NEGATIVE); Benzodiazephine Screen, Urine Neg (NEGATIVE); Cannabinoid Screen, Urine Neg (NEGATIVE); Cocaine Screen, Urine Neg (NEGATIVE); Opiate Scree,Urine Neg (NEGATIVE); Phencyclidine Screen, Urine Neg (NEGATIVE)
--- NOTE | 2025-06-16 09:19 | DVHCONRES ---
Date Seen: Jun 16, 2025 Resident Creating Document: MIRTA SANTANA RESDIENT History of Present Illness This is a 60-year-old female with past medical history of hypertension came to the hospital due to chest pain 20 minutes prior to came to the hospital. She describes pain substernal heaviness, radiating to the back and the neck, associated with shortness of breaths. She denies fever, palpitation, nausea, vomiting, sweating, or any recent sick contacts/chest trauma. PMHx: Hypertension Home medication: Atorvastatin, lisinopril 5 mg, metoprolol 25 mg, and chlorthal idone 25 mg Allergic history: No Known allergy Patient seen and examined at the bedside. Patient is feeling better since admi ssion and does not have any active complaint including chest pain and shortness of breaths. Family History: Patient reports no known family medical history. Allergies: Coded Allergies: NO KNOWN ALLERGIES (Unverified , 04/29/25) Home Meds Active Scripts Metoprolol Succinate (Metoprolol Succinate Er) 25 Mg Tab, 1 TAB PO DAILY, #30 TAB 2 Refills Prov:AUDIE FLOWERS RESIDENT 05/01/25 Lisinopril (Lisinopril) 5 Mg Tab, 20 MG PO DAILY for 30 Days, #30 TAB 2 Refills Prov:AUDIE FLOWERS RESIDENT 05/01/25 Chlorthalidone (Chlorthalidone) 25 Mg Tab, 25 MG PO DAILY@BREAKFAST for 30 Days, #30 TAB 2 Refills Prov:AUDIE FLOWERS RESIDENT 05/01/25 Atorvastatin Calcium (ATORVASTATIN CALCIUM) 20 Mg Tab, 40 MG PO HS for 30 Days, #30 TAB Prov:AUDIE FLOWERS RESIDENT 05/01/25 Current Medications Current Medications Medications (Trade) Dose Ordered Sig/Savana Route PRN Reason Start Time Stop Time Status Last Admin Aspirin 81 mg DAILY PO 06/16/25 10:00 Atorvastatin Calcium (Lipitor) 20 mg HS PO 06/15/25 22:00 06/15/25 22:09 Metoprolol Tartrate (Lopressor Tablet) 50 mg BID PO 06/15/25 22:00 06/16/25 08:18 DC 06/15/25 22:09 Amlodipine Besylate (Norvasc Tablet) 5 mg DAILY PO 06/16/25 10:00 06/16/25 08:18 DC Hydralazine HCl (Apresoline Injection) 10 mg Q6HP PRN IV SBP>150 06/15/25 16:45 Sodium Chloride 1,000 ml @ 60 mls/hr [id number] IV 06/15/25 16:45 Acetaminophen/ Hydrocodone Bitart ([place] 5/325MG Tab) 1 tab Q4HP PRN PO MODERATE PAIN (4-6 PAIN SCALE) 06/15/25 16:45 Ondansetron HCl (Zofran) 4 mg Q4HP PRN IV NAUSEA / VOMITING 06/15/25 16:45 Docusate Sodium (Colace Capsule) 100 mg BIDPRN PRN PO FOR CONSTIPATION 06/15/25 16:45 Acetaminophen (Tylenol Tablet) 650 mg Q6HP PRN PO PAIN SCALE 1-3 OR TEMP>100.4 06/15/25 16:45 Nitroglycerin (Ntrostat Sublingual) 0.4 mg Q5MINP PRN SL FOR CHEST PAIN 06/15/25 17:30 Morphine Sulfate 2 mg Q30M PRN IV FOR CHEST PAIN 06/15/25 17:30 Metoprolol Succinate (Toprol Xl) 25 mg DAILY PO 06/16/25 10:00 Lisinopril (Zestril Tablet) 10 mg DAILY PO 06/16/25 10:00 Chlorthalidone (Chlorthalidone) 25 mg DAILY@BREAKFAST PO 06/16/25 13:00 Vital Signs Vital Signs Date Time Temp Pulse Resp B/P (MAP) Pulse Ox O2 Delivery O2 Flow Rate FiO2 06/16/25 08:49 97.6 52 18 142/84 (103) 97 97.6 06/16/25 00:37 Room Air* 0 21 Physical Exam General Appearance: Alert, Oriented X3, Cooperative, No acute distress HEENT: Atraumatic, PERRLA, EOMI, Mucous membrane moist/pink Respiratory: Clear to auscultation, Normal air movement Cardiovascular: Regular rate, Normal S1, Normal S2, No murmurs, no chest wall tenderness Abdominal: Normal bowel sounds, Soft, No tenderness, No hepatospenomegaly, No masses Extremities: No clubbing, No cyanosis, No edema, Normal pulses, No tenderness/swelling Skin: No rashes, No breakdown, No significant lesion Neuro: Normal gait, Normal speech, Strength at 5/5 X4 ext, Normal tone, Sensation intact, Cranial nerves 3-12 NL, Reflexes 2+ Psych/Mental Status: Mental status NL, Mood NL Labs/Diagnostic Data Labs Test 06/16/25 08:12 06/16/25 03:08 06/15/25 18:27 06/15/25 15:35 Range/Units Urine Opiates Screen Neg NEGATIVE Urine Fentanyl Screen Neg NEGATIVE Urine Barbiturates Screen Neg NEGATIVE Urine Phencyclidine Screen Neg NEGATIVE Urine Amphetamines Screen Neg NEGATIVE Urine Benzodiazepines Screen Neg NEGATIVE Urine Cocaine Screen Neg NEGATIVE Urine Cannabinoids Screen Neg NEGATIVE White Blood Count 6.8 # 4.4-10.8 10^3/uL Red Blood Count 4.27 4.0-5.20 10^6/uL Hemoglobin 13.1 12.2-16.2 g/dL Hematocrit 38.8 # 36.0-46.0 % Mean Corpuscular Volume 90.9 80.0-100.0 fL Mean Corpuscular Hemoglobin 30.7 28.0-32.0 pg Mean Corpuscular Hemoglobin Concent 33.8 32.0-36.0 g/dL Red Cell Distribution Width 15.4 H 11.8-14.3 % Platelet Count 234 140-450 10^3/uL Mean Platelet Volume 9.3 6.9-10.8 fL Neutrophils (%) (Auto) 41.7 37.0-80.0 % Lymphocytes (%) (Auto) 47.5 10.0-50.0 % Monocytes (%) (Auto) 9.2 0.0-12.0 % Eosinophils (%) (Auto) 1.1 0.0-7.0 % Basophils (%) (Auto) 0.5 0.0-2.0 % Neutrophils # (Auto) 2.8 1.6-8.6 10 ^3/uL Lymphocytes # (Auto) 3.2 0.4-5.4 10 ^3/uL Monocytes # (Auto) 0.6 0-1.3 10 ^3/uL Eosinophils # (Auto) 0.1 0-0.8 10 ^3/uL Basophils # (Auto) 0 0-0.2 10 ^3/uL Nucleated Red Blood Cells 0.1 % Sodium Level 143 136-145 mmol/L Potassium Level 3.5 3.5-5.1 mmol/L Chloride Level 109 H 98-107 mmol/L Carbon Dioxide Level 24 20-31 mmol/L Anion Gap 10 5-15 Blood Urea Nitrogen 16 9-23 mg/dL Creatinine 0.62 0.550-1.02 mg/dL Glomerular Filtration Rate Calc 102 >90 mL/min BUN/Creatinine Ratio 25.8 H 10.0-20.0 Serum Glucose 89 74-106 mg/dL Calcium Level 9.7 8.7-10.4 mg/dL Total Bilirubin 0.5 0.2-1.0 mg/dL Aspartate Amino Transferase (AST) 16 13-40 U/L Alanine Aminotransferase (ALT) 16 7-40 U/L Alkaline Phosphatase 54 46-116 U/L B-Type Natriuretic Peptide 48.99 0-100 pg/mL Total Protein 6.5 5.7-8.2 g/dL Albumin 4.0 3.2-4.8 g/dL Urine Color Colorless Yellow Urine Clarity Clear Clear Urine pH 5.0 5.0-9.0 Urine Specific Arnold 1.009 1.001-1.035 Urine Protein Negative Negative Urine Ketones Negative Negative Urine Blood Negative Negative /uL Urine Nitrite Negative Negative Urine Bilirubin Negative Negative Urine Urobilinogen Normal Negative mg/dL Urine Leukocyte Esterase Trace Negative /uL Urine RBC <1 0 - 4 /hpf Urine Microscopic WBC 1 0-5 /HPF Urine Squamous Epithelial Cells Few <5 /hpf Urine Bacteria Few H None Seen /hpf Urine Glucose Normal Normal mg/dL Troponin I High Sensitivity < 3 L </=34 ng/L Assessment Hypertensive Emergency Ruled out ACS Dyslipidemia * EKGs shows normal sinus rhythm and no significant ST or T-wave changes * Serial trop I is within normal limits * Chest x-ray shows no intrathoracic abnormalities Plan/recommendation (case discussed with Dr. Girard) * Lisinopril/Hydrochlorothiazide 10/12.5mg twice daily, amlodopine 5mg daily, and metoprolol 25 mg daily * Check echocardiogram * In context on normal echocardiogram, the patient does not need any further cardiology workup at the moment * Rest of plan per primary team Thank you for giving us the opportunity to take care of your patient. Please call back if any questions/concerns. Plan discussed with: Patient, Other (RN) MIRTA SANTANA Jun 16, 2025 09:19
[2025-06-16] MEDS: METOPROLOL SUCCINATE XL 50 MG TAB PO SCH (09:40)
[2025-06-16] MEDS: LISINOPRIL 5 MG TAB PO SCH (09:41)
--- NOTE | 2025-06-16 11:50 | DVHPNRES ---
Progress Note Date Seen: Jun 16, 2025 Resident Creating Document: PRIYANKA HUNTER RESIDENT Has the PT tested + for MRSA If YES, has PT been informed?: No Medical Necessity Reason Pt with a Central, PICC or Fol: No Subjective Review of Systems Ms. Baker is a 60-year-old female with past medical history of arthritis and hypertension who presented to [facility] ED with complaint of chest pain. Patient reports she has been experiencing substernal , sharp and pressure like chest pain with associated with shortness of breath, SOB at rest and on exertion, pain irradiated to left shoulder and back, patient denied diaphoresis, dizziness, nausea, vomit, fever or chills. The patient reports that she is compliant with the BP medications at home. Patient was seen and evaluated in the ED, inicial laboratory data shows WBC 10.1, platelets 247, sodium 142, potassium 3.7, BUN 17, creatinine 0.65, glucose 97, calcium 10.8, troponin < 3, blood pressure 219/115 trending down to 112/80, heart rate 65, temperature 97.0 F, O2 saturation 99% on oxygen. Chest x-ray showed no evidence of acute disease. EKG left hypertrophy. Patient was admitted for further evaluation and medical management. Today, the patient reports that the pain and shortness of breath has subsided is 0/10. Vital signs were reviewed, BP is 154/78mmHg. Labs report: BNP 48.99. Cardiology is on board, they request an ECHO. We will follow up with the results. ROS: Constitutional: denies Fever, Chills, Sweats, Weakness, Malaise, Other Eyes: No: Pain, Vision change, Conjunctivae inflammation, Eyelid inflammation, Other, Redness ENT: No: Ear pain, Ear discharge, Nose pain, Nose discharge, Nose congestion, Mouth pain, Mouth swelling, Throat pain, Throat swelling, Other Respiratory: No SOB, Cardiovascular: No chest pain. Hypertension Chest Pain , denies Palpitations, Orthopnea, Paroxysmal Noc. Dyspnea, Edema, Lt Headedness Gastrointestinal: No: Nausea, Vomiting, Abdominal Pain, Diarrhea, Constipation, Melena, Hematochezia, Other Genitourinary: No Dysuria, No Frequency, No Incontinence, No Hematuria, No Retention, No Other Musculoskeletal: No: other, neck pain, shoulder pain, arm pain, back pain, hand pain, leg pain, foot pain Skin: Rash (Skin); No: Lesions, Jaundice, Bruising, Other Neurological: No: Weakness, Numbness, Incoordination, Change in speech, Confusion, Seizures, Other Allergies: UNK Objective vital signs Vital Sign Date Time Temp Pulse Resp B/P (MAP) Pulse Ox O2 Delivery O2 Flow Rate FiO2 06/16/25 09:41 157/84 06/16/25 09:40 60 06/16/25 08:49 97.6 18 97 97.6 06/16/25 08:10 Room Air* 0 21 Total Intake and Output 06/15/25 06/15/25 06/16/25 15:00 23:00 07:00 Intake Total 0 ml Balance 0 ml medications Current Medications Medications Dose Ordered Sig/Savana Route Start Time Stop Time Status Last Admin Dose Admin Aspirin 81 mg DAILY PO 06/16/25 10:00 06/16/25 09:39 81 MG Atorvastatin Calcium 20 mg HS PO 06/15/25 22:00 06/15/25 22:09 20 MG Hydralazine HCl 10 mg Q6HP PRN IV 06/15/25 16:45 Sodium Chloride 1,000 ml @ 60 mls/hr [id number] IV 06/15/25 16:45 Acetaminophen/ Hydrocodone Bitart 1 tab Q4HP PRN PO 06/15/25 16:45 Ondansetron HCl 4 mg Q4HP PRN IV 06/15/25 16:45 Docusate Sodium 100 mg BIDPRN PRN PO 06/15/25 16:45 Acetaminophen 650 mg Q6HP PRN PO 06/15/25 16:45 Nitroglycerin 0.4 mg Q5MINP PRN SL 06/15/25 17:30 Morphine Sulfate 2 mg Q30M PRN IV 06/15/25 17:30 Metoprolol Succinate 25 mg DAILY PO 06/16/25 10:00 06/16/25 09:40 25 MG Lisinopril 10 mg DAILY PO 06/16/25 10:00 06/16/25 09:41 10 MG Chlorthalidone 25 mg DAILY@BREAKFAST PO 06/16/25 13:00 Examination =General Appearance: Alert, Oriented X3, Cooperative, No acute distress HEENT: Atraumatic, PERRLA, EOMI, Mucous membr. moist/pink Respiratory: Normal air movement Cardiovascular: Regular rate, Normal S1, Normal S2, No murmurs, no chest tenderness on palpation of the chest. Abdominal: Normal bowel sounds, Soft, No tenderness, No hepatospenomegaly, No masses Extremities: No clubbing, No cyanosis, No edema, Normal pulses, No tenderness/swelling Skin: No breakdown, No significant lesion Neuro: Normal gait, Normal speech, Strength at 5/5 X4 ext, Normal tone, Sensation intact, Cranial nerves 3-12 NL, Reflexes 2+ Psych/Mental Status: Mental status NL, Mood NL laboratory and microbiology Laboratory Tests 06/16/25 03:08 Test 06/16/25 03:08 Range/Units Serum Glucose 89 74-106 mg/dL Problem List/Assessment/Plan Problem List/Assessment/Plan #Chest pain, Rule out ACS EKG ECHO Troponins: 3 Cardiology consult #Hypertensive urgency Lisinopril 20mg po qd Metoprolol 25mg poqd Hydralazin IV #Hyperlipidemia Atorvastatina 20mg po qd #Arthritis DVT/PPI prophylaxis Goals of care discussed, more than 35 min spend with the patient. Case discussed with Dr. Hebert Code status: Full code PCP: patient does not remember name, we will ask tomorrow again. Medical plan discussed with patient and RN. Patient agrees with the plan. Plan discussed with: Patient My Orders My Orders Orders - PRIYANKA HUNTER Procedure Category Date Status Time Comprehensive LAB 06/17/25 Verified Metabolic Panel 04:00 Complete Blood Count LAB 06/17/25 Verified 04:00 Thyroid Stimulating LAB 06/16/25 Logged Hormone 11:02 Date of Service: Jun 16, 2025 Billing Provider: MATTHEW CONNELL MD Common Visit Codes: [id number] INP/OBS CARE(HIGH) PRIYANKA HUNTER Jun 16, 2025 11:50 MATTHEW CONNELL MD Jun 23, 2025 01:25
[2025-06-16] MEDS: CHLORTHALIDONE 25 MG TAB PO SCH (12:48)
[2025-06-16] MEDS: hydrALAZINE HCL 20 MG/ML VL IV PRN (16:39)
--- NOTE | 2025-06-16 21:22 | DVHSR ---
APPROVED REPORT EXAM: LIMITED Two-dimensional and M-mode echocardiogram with Doppler and color Doppler. Blood Pressure: 142/84 mmHg INDICATION Chest Pain RISK FACTORS Height: 5', Weight: 105 DIMENSIONS LVDd4.6 (3.8-5.7cm)LA (2D)3.0 (1.9-4.0cm)Aortic Root3.1 (2.0-3.7cm) LVDs3.2 (2.5-4.0cm)LA (MM) (1.9-4.0cm)Aortic Cusp Exc1.5 (1.5-2.0cm) EF (%) 56.0 (55-70%)Rt. Atrium3.0 (1.9-4.0cm)Asc. Aorta cm IVSd0.8 (0.7-1.1cm)RV (D) (1.8-2.4cm) PWd0.8 (0.7-1.1cm) Mitral Valve MitralMitral Stenosis E wave0.80m/sMV Mean GR.mmHg A wave0.90m/sMV Peak GR.mmHg E/A ratio0.92D MVAcm2 Aortic Valve Aortic ValveAortic Stenosis V11.20m/Carlos Mean GR.4mmHg V21.50m/Carlos Peak GR.10mmHg LVOT Diameter1.8 (1.8-2.4cm)Doppler AVA2.03cm2 Tricuspid Valve TR Velocity2.40m/s [id number] Conclusion LV EF IS 65% AND IS NORMAL NORMAL VALVES NORMALRV FUNCTION NO EFFUSION
[2025-06-17 01:00] VITALS: BP 128/80; PULSE 76; RESP 20; TEMP 98.3; O2SAT 99
[2025-06-17] MEDS: ACETAMINOPHEN 325 MG TAB PO PRN (04:42)
[2025-06-17 05:00] VITALS: BP 114/80; PULSE 80; RESP 20; TEMP 98.5; O2SAT 97
[2025-06-17 05:33] LABS: Hematocrit 41.4 % (36.0-46.0); Hemoglobin 14.3 g/dL (12.2-16.2); Mean Corpuscular Hemoglobin 31.0 pg (28.0-32.0); Mean Corpuscular Volume 89.5 fL (80.0-100.0); Nucleated Red Blood Cells % 0.2 %
[2025-06-17 05:52] LABS: Alanine Aminotransferase 14 U/L (7-40); Albumin 4.1 g/dL (3.2-4.8); Alkaline Phosphatase 61 U/L (46-116); Anion Gap 11 (5-15); BUN/Creatinine Ratio 22.0 (10.0-20.0); Blood Urea Nitrogen 13 mg/dL (9-23); Calcium 9.1 mg/dL (8.7-10.4); Carbon Dioxide 21 mmol/L (20-31); Chloride 107 mmol/L (98-107); Glucose 95 mg/dL (74-106); Potassium 3.5 mmol/L (3.5-5.1); Sodium 139 mmol/L (136-145); Total Protein 6.7 g/dL (5.7-8.2)
[2025-06-17 05:53] LABS: Bilirubin, Total 0.7 mg/dL (0.2-1.0)
[2025-06-17] MEDS ORDERED: hydrALAZINE HCL 20 MG/ML VL IV PRN (07:15)
[2025-06-17 08:00] VITALS: PULSE 79; PULSE 84; RESP 17; O2SAT 98
[2025-06-17 09:24] VITALS: BP 127/76; PULSE 81; RESP 17; TEMP 97.7; O2SAT 98
[2025-06-17] MEDS: LISINOPRIL 5 MG TAB PO SCH (09:57)
[2025-06-17] MEDS: DOCUSATE SOD 100 MG CAP PO PRN (10:16)
[2025-06-17] MEDS ORDERED: NIFE1TAB36 PO (11:40)
[2025-06-17] MEDS ORDERED: LISI20TA56 PO (11:40)
[2025-06-17 12:29] VITALS: BP 127/76; PULSE 81; RESP 17; TEMP 97.7; O2SAT 98
--- NOTE | 2025-06-17 12:37 | DVHDSRES ---
Discharge Summary Date of Admission Resident Creating Document: PRIYANKA HUNTER RESIDENT Jun 15, 2025 at 17:30 Date of Discharge: Jun 17, 2025 Admitting Diagnosis Hypertensive Urgency Chest pain of unknown etiology Wounds: No wounds found at admission Labs/Diagnostic Data: Laboratory Results Test 06/17/25 05:03 06/16/25 08:12 06/16/25 03:08 06/15/25 18:27 White Blood Count 6.8 10^3/uL (4.4-10.8) Red Blood Count 4.63 10^6/uL (4.0-5.20) Hemoglobin 14.3 g/dL (12.2-16.2) Hematocrit 41.4 % (36.0-46.0) Mean Corpuscular Volume 89.5 fL (80.0-100.0) Mean Corpuscular Hemoglobin 31.0 pg (28.0-32.0) Mean Corpuscular Hemoglobin Concent 34.6 g/dL (32.0-36.0) Red Cell Distribution Width 15.2 % (11.8-14.3) Platelet Count 210 10^3/uL (140-450) Mean Platelet Volume 9.2 fL (6.9-10.8) Neutrophils (%) (Auto) 52.8 % (37.0-80.0) Lymphocytes (%) (Auto) 34.7 % (10.0-50.0) Monocytes (%) (Auto) 10.6 % (0.0-12.0) Eosinophils (%) (Auto) 1.1 % (0.0-7.0) Basophils (%) (Auto) 0.8 % (0.0-2.0) Neutrophils # (Auto) 3.6 10 ^3/uL (1.6-8.6) Lymphocytes # (Auto) 2.3 10 ^3/uL (0.4-5.4) Monocytes # (Auto) 0.7 10 ^3/uL (0-1.3) Eosinophils # (Auto) 0.1 10 ^3/uL (0-0.8) Basophils # (Auto) 0.1 10 ^3/uL (0-0.2) Nucleated Red Blood Cells 0.2 % Sodium Level 139 mmol/L (136-145) Potassium Level 3.5 mmol/L (3.5-5.1) Chloride Level 107 mmol/L (98-107) Carbon Dioxide Level 21 mmol/L (20-31) Anion Gap 11 (5-15) Blood Urea Nitrogen 13 mg/dL (9-23) Creatinine 0.59 mg/dL (0.550-1.02) Glomerular Filtration Rate Calc 103 mL/min (>90) BUN/Creatinine Ratio 22.0 (10.0-20.0) Serum Glucose 95 mg/dL (74-106) Calcium Level 9.1 mg/dL (8.7-10.4) Total Bilirubin 0.7 mg/dL (0.2-1.0) Aspartate Amino Transferase (AST) 17 U/L (13-40) Alanine Aminotransferase (ALT) 14 U/L (7-40) Alkaline Phosphatase 61 U/L (46-116) Total Protein 6.7 g/dL (5.7-8.2) Albumin 4.1 g/dL (3.2-4.8) Urine Opiates Screen Neg (NEGATIVE) Urine Fentanyl Screen Neg (NEGATIVE) Urine Barbiturates Screen Neg (NEGATIVE) Urine Phencyclidine Screen Neg (NEGATIVE) Urine Amphetamines Screen Neg (NEGATIVE) Urine Benzodiazepines Screen Neg (NEGATIVE) Urine Cocaine Screen Neg (NEGATIVE) Urine Cannabinoids Screen Neg (NEGATIVE) B-Type Natriuretic Peptide 48.99 pg/mL (0-100) Thyroid Stimulating Hormone (TSH) 2.19 uIU/mL (0.55-4.78) Urine Color Colorless (Yellow) Urine Clarity Clear (Clear) Urine pH 5.0 (5.0-9.0) Urine Specific [place] 1.009 (1.001-1.035) Urine Protein Negative (Negative) Urine Ketones Negative (Negative) Urine Blood Negative /uL (Negative) Urine Nitrite Negative (Negative) Urine Bilirubin Negative (Negative) Urine Urobilinogen Normal mg/dL (Negative) Urine Leukocyte Esterase Trace /uL (Negative) Urine RBC <1 /hpf (0 - 4) Urine Microscopic WBC 1 /HPF (0-5) Urine Squamous Epithelial Cells Few /hpf (<5) Urine Bacteria Few /hpf (None Seen) Urine Glucose Normal mg/dL (Normal) Test 06/15/25 15:35 Troponin I High Sensitivity < 3 ng/L (</=34) Other Laboratory Tests 06/17/25 05:03 Brief Hx & Hospital Course: Ms. Baker is a 60-year-old female with past medical history of arthritis and hypertension who presented to [facility] ED with complaint of chest pain. Patient reports she has been experiencing substernal , sharp and pressure like chest pain with associated with shortness of breath, SOB at rest and on exertion, pain irradiated to left shoulder and back, patient denied diaphoresis, dizziness, nausea, vomit, fever or chills. The patient reports that she is compliant with the BP medications at home. Patient was seen and evaluated in the ED, inicial laboratory data shows WBC 10.1, platelets 247, sodium 142, potassium 3.7, BUN 17, creatinine 0.65, glucose 97, calcium 10.8, troponin < 3, blood pressure 219/115 trending down to 112/80, heart rate 65, temperature 97.0 F, O2 saturation 99% on oxygen. Chest x-ray showed no evidence of acute disease. EKG left hypertrophy. Patient was admitted for further evaluation and medical management. During her hospital admission the patient was evaluated by the cardiology team, ACS was ruled out, cardiology team ordered an ECHO, the Echo results showed EF 65%, normal LV. Today, the patient reports that the pain and shortness of breath has subsided is 0/10. Vital signs were reviewed, BP is stable and within normal limits: 114/88mmHg. Labs report: BNP 48.99 CBC and CMP no clinically significant. Due to a significant clinical improvement the patient will be discharged today. Nifedipine will be added it for a better pressure control. Discharge plan: Discharge home Lisinopril 20 mg po qd Metoprolol succinate 25mg po qd Nifedipine 30 mg po qd Cardiac diet F/u with PCP in one week F/u with cardiology in 2 weeks ROS: Constitutional: denies Fever, Chills, Sweats, Weakness, Malaise, Other Eyes: No: Pain, Vision change, Conjunctivae inflammation, Eyelid inflammation, Other, Redness ENT: No: Ear pain, Ear discharge, Nose pain, Nose discharge, Nose congestion, Mouth pain, Mouth swelling, Throat pain, Throat swelling, Other Respiratory: No SOB, Cardiovascular: No chest pain. Hypertension Chest Pain , denies Palpitations, Orthopnea, Paroxysmal Noc. Dyspnea, Edema, Lt Headedness Gastrointestinal: No: Nausea, Vomiting, Abdominal Pain, Diarrhea, Constipation, Melena, Hematochezia, Other Genitourinary: No Dysuria, No Frequency, No Incontinence, No Hematuria, No Retention, No Other Musculoskeletal: No: other, neck pain, shoulder pain, arm pain, back pain, hand pain, leg pain, foot pain Skin: Rash (Skin); No: Lesions, Jaundice, Bruising, Other Neurological: No: Weakness, Numbness, Incoordination, Change in speech, Confusion, Seizures, Other Allergies: UNK Examination General Appearance: Alert, Oriented X3, Cooperative, No acute distress HEENT: Atraumatic, PERRLA, EOMI, Mucous membr. moist/pink Respiratory: Normal air movement Cardiovascular: Regular rate, Normal S1, Normal S2, No murmurs, no chest tenderness on palpation of the chest. Abdominal: Normal bowel sounds, Soft, No tenderness, No hepatospenomegaly, No masses Extremities: No clubbing, No cyanosis, No edema, Normal pulses, No tenderness/swelling Skin: No breakdown, No significant lesion Neuro: Normal gait, Normal speech, Strength at 5/5 X4 ext, Normal tone, Sensation intact, Cranial nerves 3-12 NL, Reflexes 2+ Psych/Mental Status: Mental status NL, Mood NL Assessments during admission: #Chest pain, likely due to uncontrolled hypertension. #ACS ruled out #Hypertensive urgency #uncontrol hypertension #Hyperlipidemia #Arthritis Goals of care discussed, more than 35 min spend with the patient. Case discussed with Dr. Hebert Code status: Full code PCP: patient does not remember name. Medical plan discussed with patient and RN. Patient agrees with the discharge plan. Condition at Discharge: Stable Final Diagnosis/Problems List Hypertensive urgency Hypertensive crisis Chest pain of unknow etilogy Arthritis Discharge Disposition: Home Discharge Instruct/Medications Diet: Cardiac 2g Na,low cholest Activity: No Restrictions, As Tolerated Follow Up/Referral: F/u with PCP in one week F/U with cardiology in 2 weeks Medications: Lisinopril 20 mg po qd (in the morning) Metoprolol succinate 25 po qd ( in the morning) Nifedipine (Coreg) 30mg po qd (at night) Scheduled Atorvastatin Calcium (Atorvastatin Calcium), 40 MG PO HS Lisinopril (Lisinopril), 1 TAB PO DAILY Metoprolol Succinate (Metoprolol Succinate Er), 1 TAB PO DAILY Nifedipine (Nifedipine ER), 30 MG PO DAILY Discontinued Medications Chlorthalidone (Chlorthalidone), 25 MG PO DAILY@BREAKFAST Lisinopril (Lisinopril), 20 MG PO DAILY Discharge Statement: "Patient was advised to return to the ER or call 911 if any headaches, dizziness, shortness of breath, chest pain, abdominal pain, bleeding, fevers, or worsening of medical condition. Patient was counseled about treatment plan, medications, possible side effects, patientverbalized understanding. All questions were answered to the best of my ability. This discharge took greater then 30 minutes in planning, reviewing documentation, counseling the patient, and discussing with other team members." ASSESSMENT ASSESSMENT Assessment Hypertensive urgency Hypertensive crisis Chest pain of unknow etilogy Arthritis Date of Service: Jun 17, 2025 Billing Provider: MATTHEW CONNELL MD Common Visit Codes: 59523-IMT/OBS DISCH DAY >30min PRIYANKA HUNTER RESIDENT Jun 17, 2025 12:37 MATTHEW CONNELL MD Jun 23, 2025 21:28
--- NOTE | 2025-06-17 12:48 | ECG ---
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
[2025-06-17 13:11] VITALS: BP 130/85; PULSE 67; RESP 17; TEMP 97.7; O2SAT 99
== END 2025-06-17 14:25 | disposition home or self-care (01) | DRG 199 ==
LOC: ER 14:44 → OVERFLOW 17:30 → TELE-WESTW 06-16 04:20
PROVIDERS: ADMIT Student in an Organized Health Care Education/Training Program; ATTEND Emergency Medicine
DX: I16.1 Hypertensive emergency (principal); E78.5 Hyperlipidemia, unspecified; I10 Essential (primary) hypertension; M13.88 Other specified arthritis, other site
CPT/HCPCS: 36415; 71045; 80053; 80307; 81001; 83880; 84443; 84484; 85025; 93005; 93306; G0378